=== PATIENT | female | born 1950 ===

== ENCOUNTER 2019-12-26 12:36 | Outpatient (CLI) | payer MEDICARE, OTHER ==
--- NOTE | 2019-12-26 14:43 | MRI ---
MRI OF THE CERVICAL SPINE WITHOUT CONTRAST: INDICATION: Cervical radiculopathy. COMPARISON: Correlation is made to plain films of the cervical spine of 12/23/2019. FINDINGS: Moderate degenerative changes of the mid and lower cervical spine again noted. Loss of disk space wi th anterior osteophytes. Anterolisthesis at C4-5 is seen as described on prior plain films. This me asures at least 3 mm. There is no significant disk bulge at C2-3. At C3-4, mild disk bulge and spondylosis flatten the thecal sac. No cord impingement. No central ca nal or foraminal stenosis. At C4-5, anterolisthesis. Posterior disk bulge and spondylosis abut and mildly flatten the anterior cord. No evidence of significant foraminal stenosis. At C5-6, posterior disk bulge and spondylosis impinge on a mildly flattened anterior cord. Mild left foraminal encroachment due to facet and uncinate hypertrophy. At C6-7, disk bulge and spondylosis flatten the thecal sac and abut the anterior cord. Right foramin al narrowing due to facet and uncinate hypertrophy. At C7-T1, there is posterior disk bulge and spondylosis flattening the thecal sac. The anterior suba rachnoid space is preserved. No cord impingement or central canal stenosis. No significant foramina l stenosis. Cervical cord signal appears normally preserved. IMPRESSION: Multilevel degenerative disk changes. An anterolisthesis at C4-5. Posterior disk and spondylitic ch anges impinge on the cord at C4-5, C5-6, and C6-7 as described above. POS: [facility]
== END 2019-12-26 12:37 | disposition home or self-care (01) ==
LOC: TBSIIMAG 12:36
PROVIDERS: ATTEND Specialist
DX: M47.22 Other spondylosis with radiculopathy, cervical region (principal); M43.16 Spondylolisthesis, lumbar region; M50.11 Cervical disc disorder with radiculopathy, high cervical region
CPT/HCPCS: 72141